=== PATIENT | female | born 1985 | race Caucasian/White ===

== ENCOUNTER 2023-02-12 01:28 | Inpatient (IN) | payer MEDICAID, SELFPAY ==
[2023-02-12] MEDS ORDERED: hydrALAZINE 20 MG/ML VIAL SLOW IVP PRN (02:00)
[2023-02-12] MEDS ORDERED: Lactated Ringer's 1,000 ML IV SCH (02:00)
[2023-02-12] MEDS ORDERED: Methylergonovine 0.2 MG/ML VIAL IM PRN (02:00)
[2023-02-12] MEDS ORDERED: Promethazine HCl 25 MG/ML VIAL IM PRN (02:00)
[2023-02-12] MEDS ORDERED: Ondansetron PF 4 MG/2 ML Vial IVP PRN (02:00)
[2023-02-12] MEDS ORDERED: Misoprostol 200 MCG TAB PR PRN (02:00)
[2023-02-12] MEDS ORDERED: Diphenoxylate HCl/Atropine Tablet PO PRN (02:00)
[2023-02-12] MEDS ORDERED: NS w/ Oxytocin 30 units 500 ML IV SCH (02:00)
[2023-02-12] MEDS ORDERED: Docusate 100 MG CAP PO PRN (02:00)
[2023-02-12] MEDS ORDERED: Acetaminophen 500 MG TAB PO PRN (02:00)
[2023-02-12] MEDS ORDERED: Carboprost 250 MCG/ML AMP IM PRN (02:00)
[2023-02-12] MEDS ORDERED: fentaNYL 50 mcg/mL 1 mL Vial SLOW IVP PRN (02:00)
[2023-02-12] MEDS ORDERED: Tranexamic Acid 1,000 MG/10 ML VIAL IVP PRN (02:00)
[2023-02-12] MEDS ORDERED: HYDROcodone/Acetaminophen 5/325 mg Tablet PO PRN (02:03)
[2023-02-12] MEDS ORDERED: Lidocaine 1% (PF) 30 ML VIAL SC PRN (02:03)
[2023-02-12] MEDS ORDERED: Ibuprofen 800 MG TAB PO PRN (02:03)
[2023-02-12] MEDS ORDERED: Acetaminophen/Codeine 30-300mg Tablet PO PRN (02:03)
[2023-02-12 02:40] LABS: Mean Corpuscular HGB CONC 34.4 g/dL (32.0-36.0); Mean Corpuscular Hemoglobin 31.8 pg (27.0-33.0); Mean Corpuscular Volume 92.5 fl (81.6-98.3); Mean Platelet Volume 11.7 fl (7.4-10.4); Platelet Count 183 10x3/uL (150-450); RBC Distribution Width 11.7 % (11.5-14.5); White Blood Cell (WBC) Count 18.9 10x3/uL (3.5-10.5)
[2023-02-12] MEDS ORDERED: CEFAZOLIN 2 GM VIAL ONE (02:59)
[2023-02-12] MEDS ORDERED: Azithromycin 500 MG VIAL ONE (02:59)
[2023-02-12 03:00] LABS: Syphilis Antibody Nonreactive (Nonreactive); Syphilis Antibody Index 0.06 S/CO (<1.00 Non-Reactive)
[2023-02-12 03:01] LABS: HBSAg Index 0.22 S/CO (0-0.99); Hep B Surf Ag - L&D Non-Reactive S/CO (NonReactive)
[2023-02-12] MEDS ORDERED: PROPOFOL 0 ML ONE (03:10)
[2023-02-12] MEDS ORDERED: Misoprostol 200 MCG TAB ONE (03:24)
[2023-02-12] MEDS ORDERED: NS w/ Oxytocin 30 units 500 ML ONE (03:25)
[2023-02-12] MEDS ORDERED: Methylergonovine 0.2 MG/ML VIAL ONE (03:25)
[2023-02-12] MEDS ORDERED: Tranexamic Acid 1,000 MG/10 ML VIAL ONE (03:25)
[2023-02-12] MEDS ORDERED: Lidocaine 1% (PF) 30 ML VIAL ONE (03:36)
[2023-02-12 04:10] VITALS: BMI 25.2
[2023-02-12] MEDS ORDERED: Lidocaine 1% PF 5 ML VIAL ONE (04:27)
[2023-02-12 05:11] LABS: RapidComm Collect By CBN; pH (Cord, venous) 7.196 (7.250-7.350)
[2023-02-12 05:12] LABS: RapidComm Collect By CBN
[2023-02-12 07:47] LABS: Hemoglobin 12.1 g/dL (12.0-15.5); Mean Corpuscular HGB CONC 34.4 g/dL (32.0-36.0); Mean Corpuscular Volume 93.1 fl (81.6-98.3); Mean Platelet Volume 12.1 fl (7.4-10.4); Platelet Count 168 10x3/uL (150-450); RBC Distribution Width 11.9 % (11.5-14.5); Red Blood Cell (RBC) Count 3.78 10x6/uL (3.90-5.03); White Blood Cell (WBC) Count 20.9 10x3/uL (3.5-10.5)
[2023-02-12 08:14] LABS: MDiff Complete? YES
[2023-02-12 08:25] LABS: Band 2 % (5-11); Lymphocytes 12 % (21-51); Monocytes 6 % (0-10); Neutrophil 80 % (42-75)
[2023-02-12 08:26] LABS: Platelet Adequacy Comment Appears Adequate; RBC Morph Comment Within Normal Limits
[2023-02-12 16:08] VITALS: BP 108/58; TEMP 98.2
== END 2023-02-12 17:25 | disposition home or self-care (01) | DRG 807 ==
LOC: CSHLD/OP 01:28 → CSHLD 01:41 → CSHPP 07:55
PROVIDERS: ADMIT Obstetrics & Gynecology; ATTEND Obstetrics & Gynecology
PROC: 10D07Z6 Extraction of Products of Conception, Vacuum, Via Natural or Artificial Opening (ICD-10-PCS; principal; 2023-02-12)
PROC: 0KQM0ZZ Repair Perineum Muscle, Open Approach (ICD-10-PCS; 2023-02-12)
PROC: 4A133R1 Monitoring of Arterial Saturation, Peripheral, Percutaneous Approach (ICD-10-PCS; 2023-02-12)
DX: O76 Abnormality in fetal heart rate and rhythm complicating labor and delivery (principal); Z37.0 Single live birth; Z3A.39 39 weeks gestation of pregnancy; O70.1 Second degree perineal laceration during delivery
CPT/HCPCS: 36415; 82805; 85027; 86780; 86850; 86900; 86901; 87340; 88307; 99285; J2001; J2590; J2704; J7120